=== PATIENT | male | born 2000 | race African-American/Black ===

== ENCOUNTER 2020-06-13 12:07 | Emergency (ER) | payer SELFPAY ==
[2020-06-13] MEDS ORDERED: BUPIVACAINE 0.5% PF 10 ML VIAL ONE (12:30)
--- NOTE | 2020-06-13 12:47 | EDPHYS ---
Physician Documentation [facility] Name: Adeline Heredia Age: 20 yrs Sex: Male : 2000 Arrival Date: 06/13/2020 Time: 12:09 Bed 15 Private MD: ED Physician José Miguel Mireles HPI: 06/13 14:08 This 20 yrs old Black Male presents to ER via Ambulatory with complaints of Fish hook jmm on right hand. 14:08 The patient or guardian reports injury. Onset: The symptoms/episode began/occurred jmm acutely, just prior to arrival. Modifying factors: The symptoms are alleviated by nothing, the symptoms are aggravated by nothing. Associated signs and symptoms: Pertinent negatives: decreased sensation distally, fever, numbness distally, tingling distally, vomiting. The patient has not experienced similar symptoms in the past. Patient accidently stuck his right hand with a fish hook. Historical: - Allergies: 12:18 No Known Allergies; ll1 - PMHx: 12:18 None; ll1 - PSHx: 12:18 None; ll1 - Immunization history:: Last tetanus immunization: up to date Flu vaccine is not up to date. - Social history:: Smoking status: Patient denies any tobacco usage or history of. ROS: 14:08 Constitutional: Negative for fever, chills, and weight loss, Cardiovascular: Negative jmm for chest pain, palpitations, and edema, Respiratory: Negative for shortness of breath, cough, wheezing, and pleuritic chest pain. 14:08 MS/extremity: Positive for injury or acute deformity. 14:08 All other systems are negative. Exam: 14:08 Constitutional: This is a well developed, well nourished patient who is awake, alert, jmm and in no acute distress. Head/Face: atraumatic. Eyes: EOMI, no conjunctival erythema appreciated ENT: Moist Mucus Membranes Neck: Trachea midline, Supple Chest/axilla: Normal chest wall appearance and motion. Cardiovascular: Regular rate and rhythm. No edema appreciated Respiratory: Normal respirations, no respiratory distress appreciated Abdomen/GI: Non distended, soft Back: Normal ROM 14:08 Skin: Appearance: Color: 14:08 Neuro: Orientation: is normal, Mentation: is normal, Memory: is normal. 14:08 Psych: Behavior/mood is pleasant, cooperative. Vital Signs: 12:18 BP 124 / 70; Pulse 84; Resp 16; Temp 98.0; Pulse Ox 97% ; Weight 104.33 kg; Height 6 ll1 ft. 2 in. (187.96 cm); Pain 8/10; 12:18 Body Mass Index 29.53 (104.33 kg, 187.96 cm) ll1 Procedures: 12:43 Foreign Body Removal: a fishhook, by using a hemostat, The patient tolerated the jmm removal well. MDM: 12:43 Patient medically screened. [facility] 12:44 Data reviewed: vital signs, nurses notes. Counseling: I had a detailed discussion with [facility] the patient and/or guardian regarding: the historical points, exam findings, and any diagnostic results supporting the discharge/admit diagnosis, the need for outpatient follow up, to return to the emergency department if symptoms worsen or persist or if there are any questions or concerns that arise at home. ED course: Patient is alert and non toxic in appearance. Patient given wound infection return precautions. Patient understood and agrees with the plan of care. . Administered Medications: 12:30 Drug: Marcaine (bupivacaine) (0.5 %) 1 application {Note: administered by ERP.} Volume: jl7 10 ml; Route: Infiltration; 12:51 Follow up: Response: No adverse reaction [facility] 12:59 Follow up: Response: No adverse reaction; RASS: Alert and Calm (0) ll1 Disposition: 18:48 Co-signature as Attending Physician, José Miguel Mireles MD. md2 Disposition: 06/13/20 12:46 Discharged to Home. Impression: Foreign Body of the Right Hand (Fish Hook). - Condition is Stable. - Discharge Instructions: Foreign Body. - Prescriptions for Doxycycline Hyclate 100 mg Oral Tablet - take 1 tablet by ORAL route every 12 hours; 20 tablet. - Medication Reconciliation Form, Thank You Letter, Antibiotic Education, Prescription Opioid Use form. - Follow up: Private Physician; When: 2 - 3 days; Reason: Recheck today's complaints, Continuance of care, Re-evaluation by your physician. Signatures: Ryan Martines PA PA jmm Leal, Jahala, RN RN jl7 José Miguel Mireles MD MD md2 James Llanos RN RN 1 Corrections: (The following items were deleted from the chart) 12:59 12:46 06/13/2020 12:46 Discharged to Home. Impression: Foreign Body of the Right Hand ll1 (Fish Hook). Condition is Stable. Forms are Medication Reconciliation Form, Thank You Letter, Antibiotic Education, Prescription Opioid Use. Follow up: Private Physician; When: 2 - 3 days; Reason: Recheck today's complaints, Continuance of care, Re-evaluation by your physician. debra
--- NOTE | 2020-06-13 12:47 | ER ---
Nurse's Notes [facility] Name: Adeline Heredia Age: 20 yrs Sex: Male : 2000 Arrival Date: 06/13/2020 Time: 12:09 Bed 15 Private MD: Diagnosis: Foreign Body of the Right Hand (Fish Hook) Presentation: 06/13 12:18 Chief complaint: Patient states: Fish hook in R hand happened 10 min [employer]. No active ll1 bleeding. Coronavirus screen: Client denies travel out of the [place] in the last 14 days. At this time, the client does not indicate any symptoms associated with coronavirus-19. Ebola Screen: Patient denies travel to an Ebola-affected area in the 21 days before illness onset. Initial Sepsis Screen: Does the patient meet any 2 criteria? No. Patient's initial sepsis screen is negative. Does the patient have a suspected source of infection? Yes: Skin breakdown/wound. Risk Assessment: Do you want to hurt yourself or someone else? Patient reports no desire to harm self or others. Onset of symptoms was June 13, 2020. 12:18 Method Of Arrival: Ambulatory ll1 12:18 Acuity: ALYSIA 4 ll1 Historical: - Allergies: 12:18 No Known Allergies; ll1 - PMHx: 12:18 None; ll1 - PSHx: 12:18 None; ll1 - Immunization history:: Last tetanus immunization: up to date Flu vaccine is not up to date. - Social history:: Smoking status: Patient denies any tobacco usage or history of. Screenin:20 Abuse screen: Denies threats or abuse. Nutritional screening: No deficits noted. ll1 Tuberculosis screening: No symptoms or risk factors identified. Fall Risk None identified. Total Marte Fall Scale indicates No Risk (0-24 pts). Assessment: 12:15 General: Appears in no apparent distress. uncomfortable, Behavior is calm, cooperative, jl7 appropriate for age. Pain: Complains of pain in right hand Pain currently is 8 out of 10 on a pain scale. Neuro: Level of Consciousness is awake, alert, obeys commands, Oriented to person, place, time, situation, Intact. Cardiovascular: Patient's skin is warm and dry. Respiratory: Airway is patent Respiratory effort is even, unlabored, Respiratory pattern is regular, symmetrical. Derm: Skin is pink, warm \T\ dry. Injury Description: Foreign body is located right hand is fish hook. 12:58 Reassessment: No changes from previously documented assessment. Patient and/or family ll1 updated on plan of care and expected duration. Pain level reassessed. Patient is alert, oriented x 3, equal unlabored respirations, skin warm/dry/pink. Vital Signs: 12:18 BP 124 / 70; Pulse 84; Resp 16; Temp 98.0; Pulse Ox 97% ; Weight 104.33 kg; Height 6 ll1 ft. 2 in. (187.96 cm); Pain 8/10; 12:18 Body Mass Index 29.53 (104.33 kg, 187.96 cm) ll1 ED Course: 12:09 Patient arrived in ED. am2 12:11 Serenity Rushing, LALA is Primary Nurse. 7 12:14 Ryan Martines PA is PHCP. [facility] 12:14 José Miguel Mireles MD is Attending Physician. [facility] 12:17 Arm band placed on Patient placed in an exam room, on a stretcher. 1 12:20 Triage completed. 1 12:20 Patient has correct armband on for positive identification. Bed in low position. Call ll1 light in reach. Side rails up X 1. Cardiac monitoring not applicable on this patient. 12:40 Assist provider with foreign body removal of a fish hook from right hand Set up for jl7 procedure. Performed by Ryan REDMAN Dressed with Band-Aid Patient tolerated well. 12:57 Patient did not have IV access during this emergency room visit. 7 12:57 No provider procedures requiring assistance completed. Patient did not have IV access ll1 during this emergency room visit. Dressings: Band aid x 1 right hand triple antibiotic applied. Irrigation on right hand irrigated with normal saline Betadine solution Patient tolerated well. Administered Medications: 12:30 Drug: Marcaine (bupivacaine) (0.5 %) 1 application {Note: administered by ERP.} Volume: jl7 10 ml; Route: Infiltration; 12:51 Follow up: Response: No adverse reaction 7 12:59 Follow up: Response: No adverse reaction; RASS: Alert and Calm (0) 1 Outcome: 12:46 [address] . [facility] 12:58 Discharged to home ambulatory. 1 12:58 Condition: stable 12:58 Discharge instructions given to patient, Instructed on discharge instructions, follow up and referral plans. medication usage, wound care, Demonstrated understanding of instructions, follow-up care, medications, wound care, Prescriptions given X 1. 12:59 Patient left the ED. 1 Signatures: Ryan Martines PA PA jmm Leal, Jahala RN RN jl7 Lawanda Leija Lynsay RN RN ll1
[2020-06-13 13:07] VITALS: BP 124/70; TEMP 98; O2SAT 97
== END 2020-06-13 12:59 | disposition home or self-care (01) ==
LOC: ER 12:07
DX: S61.441A Puncture wound with foreign body of right hand, initial encounter (principal)
CPT/HCPCS: 99284